=== PATIENT | female | born 1995 | race African-American/Black ===

== ENCOUNTER 2018-08-18 13:24 | Emergency (ER) | payer OTHER ==
[~2018-08-18] VITALS: Ht 177.8 cm; Wt 77.1 kg
[2018-08-18 14:04] VITALS: Ht 177.8 cm; Wt 77.1 kg
[2018-08-18 16:15] LABS: CALCIUM 9.6 mg/dL (8.5-10.1); CARBON DIOXIDE 27.1 mmol/L (21-32); CHLORIDE SERUM 106 mmol/L (98-107); CREATININE SERUM 0.8 mg/dL (0.6-1.0); GFR1 > 60 mL/min; GLUCOSE SERUM 89 mg/dL (74-106); PLATELET COUNT 185 x10^3mcL (130-400); POTASSIUM SERUM 3.8 mmol/L (3.5-5.1); SODIUM SERUM 142 mmol/L (136-145)
[2018-08-18 16:17] LABS: BASOPHIL % 0.8 % (0-2); RED CELL DISTRIBUTION WIDTH 14.2 % (11.5-14.5)
[2018-08-18 16:19] LABS: ALBUMIN 4.3 g/dL (3.4-5.0); ALKALINE PHOSPHATASE 61 U/L (46-116); ALT/SGPT 22 U/L (14-59); AST/SGOT 11 U/L (15-37); BILIRUBIN TOTAL 0.66 mg/dL (0.20-1.00); LIPASE 85 IU/L (73-393)
[2018-08-18 16:20] LABS: TOTAL PROTEIN, SERUM 8.5 g/dL (6.4-8.2)
[2018-08-18 17:25] LABS: UA SPECIFIC GRAVITY 1.025 (1.005-1.035); microscopic required? YES; urine erythrocyte NEGATIVE (NEGATIVE)
[2018-08-18 18:18] VITALS: BP 123/54
== END 2018-08-18 18:18 | disposition home or self-care (01) ==
LOC: ED 13:24
PROVIDERS: Emergency Medicine
DX: R10.9 Unspecified abdominal pain (principal); R11.2 Nausea with vomiting, unspecified; Z88.8 Allergy status to other drugs, medicaments and biological substances; F41.9 Anxiety disorder, unspecified; Z90.89 Acquired absence of other organs
CPT/HCPCS: J2060; J3490; J7030

== ENCOUNTER 2018-10-10 17:19 | Emergency (ER) | payer MEDICAID ==
[~2018-10-10] VITALS: Ht 177.8 cm; Wt 77.1 kg
[2018-10-10 17:31] VITALS: Ht 177.8 cm; Wt 77.1 kg
[2018-10-10 21:28] LABS: BASOPHIL % 0.6 % (0-2); PLATELET COUNT 161 x10^3mcL (130-400)
[2018-10-10 21:33] LABS: RED CELL DISTRIBUTION WIDTH 14.7 % (11.5-14.5)
[2018-10-10 21:37] LABS: CALCIUM 8.7 mg/dL (8.5-10.1); CARBON DIOXIDE 25.8 mmol/L (21-32); CHLORIDE SERUM 105 mmol/L (98-107); GFR1 > 60 mL/min; GLUCOSE SERUM 84 mg/dL (74-106); POTASSIUM SERUM 3.1 mmol/L (3.5-5.1); SODIUM SERUM 139 mmol/L (136-145)
[2018-10-10 21:42] LABS: ALBUMIN 3.9 g/dL (3.4-5.0); ALKALINE PHOSPHATASE 55 U/L (46-116); ALT/SGPT 19 U/L (14-59); AST/SGOT 11 U/L (15-37); BILIRUBIN TOTAL 0.6 mg/dL (0.20-1.00); LIPASE 78 IU/L (73-393); TOTAL PROTEIN, SERUM 7.3 g/dL (6.4-8.2)
[2018-10-10 22:58] VITALS: BP 123/74
== END 2018-10-10 22:58 | disposition home or self-care (01) ==
LOC: ED 17:19
PROVIDERS: Emergency Medicine
DX: F12.188 Cannabis abuse with other cannabis-induced disorder (principal); R11.2 Nausea with vomiting, unspecified; E86.0 Dehydration; E87.6 Hypokalemia; F41.9 Anxiety disorder, unspecified; Z90.89 Acquired absence of other organs; Z88.8 Allergy status to other drugs, medicaments and biological substances
CPT/HCPCS: J7030; Q0169

== ENCOUNTER 2019-06-25 22:40 | Emergency (ER) | payer SELFPAY ==
[~2019-06-25] VITALS: Ht 175.3 cm; Wt 71.2 kg
[2019-06-25 22:48] VITALS: Ht 175.3 cm; Wt 71.2 kg
[2019-06-26 00:18] VITALS: BP 113/76
== END 2019-06-26 00:18 | disposition home or self-care (01) ==
LOC: ED 22:40
DX: J11.1 Influenza due to unidentified influenza virus with other respiratory manifestations (principal); F17.210 Nicotine dependence, cigarettes, uncomplicated; Z90.89 Acquired absence of other organs; Z88.8 Allergy status to other drugs, medicaments and biological substances
CPT/HCPCS: 87804; J1885; J7030; Q0092

== ENCOUNTER 2019-07-01 23:25 | Emergency (ER) | payer SELFPAY ==
[~2019-07-01] VITALS: Ht 175.3 cm; Wt 60.8 kg
[2019-07-02 01:11] VITALS: BP 110/60
== END 2019-07-02 01:11 | disposition home or self-care (01) ==
LOC: ED 23:25
DX: B34.9 Viral infection, unspecified (principal); Z90.89 Acquired absence of other organs; Z88.8 Allergy status to other drugs, medicaments and biological substances

== ENCOUNTER 2020-01-13 06:30 | Emergency (ER) | payer OTHER, SELFPAY ==
[~2020-01-13] VITALS: Ht 177.8 cm; Wt 84.4 kg
[2020-01-13 06:31] VITALS: BP 126/87; Ht 177.8 cm; Wt 84.4 kg
== END 2020-01-13 07:18 | disposition home or self-care (01) ==
LOC: ED 06:30
DX: B34.9 Viral infection, unspecified (principal); Z20.828 Contact with and (suspected) exposure to other viral communicable diseases; Z90.89 Acquired absence of other organs
CPT/HCPCS: U0003-CS

== ENCOUNTER 2020-04-01 18:18 | Emergency (ER) | payer OTHER ==
[~2020-04-01] VITALS: Ht 177.8 cm; Wt 85.7 kg
[2020-04-01 18:34] VITALS: Ht 177.8 cm; Wt 85.7 kg
[2020-04-01 20:42] VITALS: BP 133/79
== END 2020-04-01 20:42 | disposition home or self-care (01) ==
LOC: ED 18:18
DX: K60.2 Anal fissure, unspecified (principal); Z88.8 Allergy status to other drugs, medicaments and biological substances; Z90.89 Acquired absence of other organs

== ENCOUNTER 2020-06-18 14:57 | Emergency (ER) | payer OTHER ==
[~2020-06-18] VITALS: Ht 177.8 cm; Wt 88.9 kg
[2020-06-18 15:19] VITALS: Ht 177.8 cm; Wt 88.9 kg
[2020-06-18 17:31] VITALS: BP 121/80
== END 2020-06-18 17:31 | disposition home or self-care (01) ==
LOC: ED 14:57
DX: S92.532A Displaced fracture of distal phalanx of left lesser toe(s), initial encounter for closed fracture (principal); S60.222A Contusion of left hand, initial encounter; Z90.89 Acquired absence of other organs; Z88.8 Allergy status to other drugs, medicaments and biological substances; W04.XXXA Fall while being carried or supported by other persons, initial encounter; Y93.89 Activity, other specified; Y92.89 Other specified places as the place of occurrence of the external cause; Y99.8 Other external cause status